=== PATIENT | male | born 1955 | race African-American/Black ===

== ENCOUNTER 2019-09-22 01:21 | Emergency (ER) | payer OTHER ==
[~2019-09-22] VITALS: Ht 182.9 cm; Wt 90.7 kg
[2019-09-22] MEDS ORDERED: KETO10TA2 PO (02:50)
[2019-09-22] MEDS ORDERED: NORFLEX100MG PO (02:50)
== END 2019-09-22 02:55 | disposition home or self-care (01) ==
LOC: ER 01:21
DX: M54.5 Low back pain (principal); M54.6 Pain in thoracic spine

== ENCOUNTER 2021-03-09 15:58 | Outpatient (CLI) | payer OTHER ==
[~2021-03-09 15:58] MED LIST: KETO10TA2 PO; NORFLEX100MG PO
== END 2021-03-09 16:09 | disposition home or self-care (01) ==
LOC: RAD 15:58
PROVIDERS: ATTEND Orthopaedic Surgery
DX: M76.52 Patellar tendinitis, left knee (principal); M76.51 Patellar tendinitis, right knee; M25.561 Pain in right knee; M25.562 Pain in left knee

== ENCOUNTER 2021-05-19 23:53 | Emergency (ER) | payer OTHER ==
[~2021-05-19] VITALS: Ht 182.9 cm; Wt 90.7 kg
[2021-05-20] MEDS ORDERED: ZYNCOF 20-400120 ML PO (03:36)
== END 2021-05-20 04:16 ==
LOC: ER 23:53
DX: R50.9 Fever, unspecified (principal); Z20.822 Contact with and (suspected) exposure to COVID-19

== ENCOUNTER 2021-08-10 13:56 | Emergency (ER) | payer OTHER ==
[~2021-08-10] VITALS: Ht 182.9 cm; Wt 90.7 kg
[~2021-08-10 13:56] MED LIST changes: +ZYNCOF 20-400120 ML PO
== END 2021-08-10 21:47 | disposition home or self-care (01) ==
LOC: ER 13:56
DX: K52.9 Noninfective gastroenteritis and colitis, unspecified (principal)

== ENCOUNTER 2022-02-06 12:57 | Emergency (ER) | payer OTHER ==
[~2022-02-06] VITALS: Ht 182.9 cm; Wt 93.0 kg
[2022-02-06] MEDS ORDERED: PARA LA PRESION (13:01)
== END 2022-02-06 16:08 | disposition home or self-care (01) ==
LOC: ER 12:57
DX: B34.9 Viral infection, unspecified (principal); I10 Essential (primary) hypertension; Z20.822 Contact with and (suspected) exposure to COVID-19

== ENCOUNTER 2022-04-12 19:30 | Emergency (ER) | payer OTHER ==
[~2022-04-12] VITALS: Ht 182.9 cm; Wt 93.0 kg
[~2022-04-12 19:30] MED LIST changes: +PARA LA PRESION
[2022-04-13] MEDS ORDERED: ZITHROMAX500 MG PO (00:30)
[2022-04-13] MEDS ORDERED: FLONASE ALLERG9.9 ML NASAL (00:30)
[2022-04-13] MEDS ORDERED: SINUS RINSE ST1 EACH NS (00:31)
== END 2022-04-13 01:02 | disposition home or self-care (01) ==
LOC: ER 19:30
DX: J06.9 Acute upper respiratory infection, unspecified (principal); Z20.828 Contact with and (suspected) exposure to other viral communicable diseases

== ENCOUNTER 2022-11-08 12:45 | Outpatient (CLI) | payer OTHER ==
[~2022-11-08 12:45] MED LIST changes: +FLONASE ALLERG9.9 ML NASAL; +SINUS RINSE ST1 EACH NS; +ZITHROMAX500 MG PO
== END 2022-11-08 12:52 | disposition home or self-care (01) ==
LOC: RAD 12:45
PROVIDERS: ATTEND General Practice
DX: R06.02 Shortness of breath (principal); Z13.88 Encounter for screening for disorder due to exposure to contaminants; Z57.2 Occupational exposure to dust